=== PATIENT | male | born 1975 | race Caucasian/White ===

== ENCOUNTER 2016-06-01 21:45 | Inpatient (IN) | payer MEDICAID ==
[~2016-06-01] VITALS: Ht 175.3 cm; Wt 90.7 kg
[~2016-06-01 21:45] MED LIST: DIVA500T35 PO; LITH300C3 PO; QUET300T2 PO
[2016-06-02] MEDS ORDERED: ZOLPIDEM TARTRATE 10 MG TABLET PO PRN (00:15)
[2016-06-02 01:54] VITALS: BP 134/88
[2016-06-02] MEDS ORDERED: MAG HYDROX/AL HYDROX/SIMETH ES 30 ML SUSPENSION UDCUP PO PRN (07:00)
[2016-06-02] MEDS ORDERED: ALBUTEROL SULFATE HFA 90 MCG/PUFF 8 GM INHALER IH PRN (08:45)
[2016-06-02] MEDS ORDERED: LOPERAMIDE HCL 2 MG CAPSULE PO PRN (08:45)
[2016-06-02] MEDS ORDERED: IBUPROFEN 600 MG TABLET PO PRN (08:45)
[2016-06-02] MEDS ORDERED: BENZOCAINE/MENTHOL LOZENGE [8 LOZENGES/PACKET] MM PRN (08:45)
[2016-06-02] MEDS ORDERED: ONDANSETRON HCL 4 MG TABLET PO PRN (08:45)
[2016-06-02] MEDS ORDERED: PETROLATUM,WHITE 71 GM JELLY TP PRN (08:45)
[2016-06-02] MEDS ORDERED: CloNIDine HCL 0.1 MG TABLET PO PRN (08:45)
[2016-06-02] MEDS ORDERED: MAGNESIUM HYDROXIDE SUSPENSION 30 ML UDCUP PO PRN (08:45)
[2016-06-02] MEDS ORDERED: BENZOCAINE/MENTHOL LOZENGE MM PRN (08:45)
[2016-06-02] MEDS ORDERED: BACITRACIN 28.4 GM OINTMENT TP PRN (08:45)
[2016-06-02] MEDS ORDERED: ACETAMINOPHEN 325 MG TABLET PO PRN (08:45)
[2016-06-02] MEDS: LORazepam 2 MG TABLET PO PRN (09:33)
[2016-06-02] MEDS: HALOPERIDOL 5 MG TABLET PO PRN ×2 (09:33→21:10)
[2016-06-02 11:59] VITALS: BP 132/88
[2016-06-02 20:03] VITALS: BP 132/87
[2016-06-02] MEDS ORDERED: HALOPERIDOL 10 MG TABLET PO SCH (21:00)
[2016-06-02] MEDS: DIVALPROEX SODIUM 500 MG ER TABLET PO SCH (21:09)
[2016-06-02] MEDS: BENZTROPINE MESYLATE 1 MG TABLET PO SCH (21:09)
[2016-06-02] MEDS: QUEtiapine FUMARATE 300 MG TABLET PO SCH (21:09)
[2016-06-03 08:08] VITALS: BP 138/73
[2016-06-03 16:44] VITALS: BP 122/77
[2016-06-03] MEDS: BENZTROPINE MESYLATE 1 MG TABLET PO SCH (20:55)
[2016-06-03] MEDS: DIVALPROEX SODIUM 500 MG ER TABLET PO SCH (20:55)
[2016-06-03] MEDS: QUEtiapine FUMARATE 300 MG TABLET PO SCH (20:56)
[2016-06-04 08:01] VITALS: BP 121/72
[2016-06-04] MEDS: HALOPERIDOL 5 MG TABLET PO PRN ×2 (16:48→20:58)
[2016-06-04] MEDS: LORazepam 2 MG TABLET PO PRN ×2 (16:50→21:31)
[2016-06-04 18:17] VITALS: BP 128/76
[2016-06-04] MEDS: QUEtiapine FUMARATE 300 MG TABLET PO SCH (20:57)
[2016-06-04] MEDS: DIVALPROEX SODIUM 500 MG ER TABLET PO SCH (20:57)
[2016-06-04] MEDS: BENZTROPINE MESYLATE 1 MG TABLET PO SCH (20:57)
[2016-06-05 08:03] VITALS: BP 106/56
[2016-06-05 17:37] VITALS: BP 118/68
[2016-06-05] MEDS: QUEtiapine FUMARATE 300 MG TABLET PO SCH (20:28)
[2016-06-05] MEDS: DIVALPROEX SODIUM 500 MG ER TABLET PO SCH (20:28)
[2016-06-05] MEDS: BENZTROPINE MESYLATE 1 MG TABLET PO SCH (20:28)
[2016-06-06 08:02] VITALS: BP 126/66
[2016-06-06] MEDS: LORazepam 2 MG TABLET PO PRN ×2 (15:01→19:18)
[2016-06-06 19:14] VITALS: BP 132/88
[2016-06-06] MEDS: BENZTROPINE MESYLATE 1 MG TABLET PO SCH (20:56)
[2016-06-06] MEDS: DIVALPROEX SODIUM 500 MG ER TABLET PO SCH (20:56)
[2016-06-06] MEDS: QUEtiapine FUMARATE 300 MG TABLET PO SCH (20:56)
[2016-06-06] MEDS: HALOPERIDOL 5 MG TABLET PO PRN (21:00)
[2016-06-07 08:05] VITALS: BP 132/88
[2016-06-07] MEDS ORDERED: BENZOCAINE/MENTHOL LOZENGE [8 LOZENGES/PACKET] MM PRN (12:22)
[2016-06-07] MEDS: LORazepam 2 MG TABLET PO PRN (19:32)
[2016-06-07] MEDS: BENZTROPINE MESYLATE 1 MG TABLET PO SCH (20:32)
[2016-06-07] MEDS: DIVALPROEX SODIUM 500 MG ER TABLET PO SCH (20:32)
[2016-06-07] MEDS: QUEtiapine FUMARATE 300 MG TABLET PO SCH (20:33)
[2016-06-07] MEDS ORDERED: QUEtiapine FUMARATE 300 MG TABLET PO SCH (21:00)
[2016-06-07] MEDS: HALOPERIDOL 5 MG TABLET PO PRN (21:41)
[2016-06-07 21:46] VITALS: BP 132/76
[2016-06-08 08:05] VITALS: BP 144/86
[2016-06-08] MEDS: HALOPERIDOL 5 MG TABLET PO PRN ×2 (08:09→20:39)
[2016-06-08] MEDS: LORazepam 2 MG TABLET PO PRN ×2 (08:09→16:50)
[2016-06-08] MEDS: NICOTINE 21 MG/24 HOUR PATCH TD SCH (08:15)
[2016-06-08 16:00] VITALS: BP 138/78
[2016-06-08] MEDS: BENZTROPINE MESYLATE 1 MG TABLET PO SCH (20:38)
[2016-06-08] MEDS: DIVALPROEX SODIUM 500 MG ER TABLET PO SCH (20:38)
[2016-06-08] MEDS: QUEtiapine FUMARATE 300 MG TABLET PO SCH (20:38)
[2016-06-09 08:05] VITALS: BP 102/50
[2016-06-09] MEDS: NICOTINE 21 MG/24 HOUR PATCH TD SCH (10:31)
[2016-06-09 16:47] VITALS: BP 133/62
[2016-06-09] MEDS: DIVALPROEX SODIUM 500 MG ER TABLET PO SCH (20:31)
[2016-06-09] MEDS: BENZTROPINE MESYLATE 1 MG TABLET PO SCH (20:31)
[2016-06-09] MEDS: QUEtiapine FUMARATE 300 MG TABLET PO SCH (20:31)
[2016-06-09] MEDS: HALOPERIDOL 5 MG TABLET PO PRN (20:33)
[2016-06-09] MEDS: LORazepam 2 MG TABLET PO PRN (21:10)
[2016-06-10] MEDS: LORazepam 2 MG TABLET PO PRN (08:18)
[2016-06-10] MEDS: NICOTINE 21 MG/24 HOUR PATCH TD SCH (09:00)
[2016-06-10 14:27] LABS: ALANINE AMINOTRANSFERASE 30 U/L (12-78); ALBUMIN 3.3 g/dL (3.4-5.0); ANION GAP 11 mmol/L (8-16); ASPARTATE AMINOTRANSFERASE 12 U/L (15-37); BILIRUBIN,TOTAL 0.3 mg/dL (0.1-1.0); CALCIUM, TOTAL 8.9 mg/dL (8.8-10.5); CARBON DIOXIDE 28 mmol/L (22-29); CHLORIDE 104 mmol/L (98-107); CHOL/HDL RATIO 5.2 (4.2-7.3); CREATININE 1.13 mg/dL (0.60-1.30); GLOMERULAR FILTR. RATE CALC > 60 mL/min (>60); POTASSIUM 4.4 mmol/L (3.5-5.1); SODIUM SERUM 143 mmol/L (136-145); TOTAL PROTEIN, SERUM 6.4 g/dL (6.4-8.2); UREA NITROGEN, BLOOD 16 mg/dL (7-18)
[2016-06-10] MEDS ORDERED: BENZ1TAB10 PO (16:37)
[2016-06-10] MEDS: DIVALPROEX SODIUM 500 MG ER TABLET PO SCH (20:29)
[2016-06-10] MEDS: BENZTROPINE MESYLATE 1 MG TABLET PO SCH (20:29)
[2016-06-10] MEDS: QUEtiapine FUMARATE 300 MG TABLET PO SCH (20:29)
[2016-06-10] MEDS: HALOPERIDOL 5 MG TABLET PO PRN (21:11)
[2016-06-10 21:17] VITALS: BP 129/78
[2016-06-11 07:18] VITALS: BP 107/78
== END 2016-06-11 07:15 | disposition home or self-care (01) | DRG 750 ==
LOC: 3EI 21:45 → UNDOADMIN 21:45
DX: F25.1 Schizoaffective disorder, depressive type (principal); R45.851 Suicidal ideations; F22 Delusional disorders; F15.10 Other stimulant abuse, uncomplicated; F12.90 Cannabis use, unspecified, uncomplicated; F17.200 Nicotine dependence, unspecified, uncomplicated; G47.00 Insomnia, unspecified; F19.10 Other psychoactive substance abuse, uncomplicated; G89.4 Chronic pain syndrome; F41.9 Anxiety disorder, unspecified; Z53.29 Procedure and treatment not carried out because of patient's decision for other reasons; Z71.6 Tobacco abuse counseling; Z71.51 Drug abuse counseling and surveillance of drug abuser; Z72.89 Other problems related to lifestyle

== ENCOUNTER 2016-07-04 17:37 | Inpatient (IN) | payer MEDICAID ==
[~2016-07-04] VITALS: Ht 175.3 cm; Wt 91.6 kg
[~2016-07-04 17:37] MED LIST changes: +BENZ1TAB10 PO; -LITH300C3 PO
[2016-07-04] MEDS ORDERED: ZOLPIDEM TARTRATE 10 MG TABLET PO PRN (20:30)
[2016-07-04 21:15] VITALS: BP 129/71
[2016-07-04] MEDS: HALOPERIDOL 5 MG TABLET PO PRN (22:01)
[2016-07-05] MEDS: LORazepam 2 MG TABLET PO PRN ×2 (02:43→07:50)
[2016-07-05 06:12] VITALS: BP 118/64
[2016-07-05] MEDS: NICOTINE 21 MG/24 HOUR PATCH TD SCH (08:07)
[2016-07-05 08:25] VITALS: BP 111/60
[2016-07-05] MEDS ORDERED: ALBUTEROL SULFATE HFA 90 MCG/PUFF 8 GM INHALER IH PRN (09:45)
[2016-07-05] MEDS ORDERED: MAGNESIUM HYDROXIDE SUSPENSION 30 ML UDCUP PO PRN (09:45)
[2016-07-05] MEDS ORDERED: ONDANSETRON HCL 4 MG TABLET PO PRN (09:45)
[2016-07-05] MEDS ORDERED: IBUPROFEN 600 MG TABLET PO PRN (09:45)
[2016-07-05] MEDS ORDERED: LOPERAMIDE HCL 2 MG CAPSULE PO PRN (09:45)
[2016-07-05] MEDS ORDERED: BENZOCAINE/MENTHOL LOZENGE MM PRN (09:45)
[2016-07-05] MEDS ORDERED: PETROLATUM,WHITE 71 GM JELLY TP PRN (09:45)
[2016-07-05] MEDS ORDERED: MAG HYDROX/AL HYDROX/SIMETH ES 30 ML SUSPENSION UDCUP PO PRN (09:45)
[2016-07-05] MEDS ORDERED: CloNIDine HCL 0.1 MG TABLET PO PRN (09:45)
[2016-07-05] MEDS ORDERED: ACETAMINOPHEN 325 MG TABLET PO PRN (09:45)
[2016-07-05] MEDS ORDERED: BACITRACIN 28.4 GM OINTMENT TP PRN (09:45)
[2016-07-05] MEDS: HALOPERIDOL 5 MG TABLET PO PRN (14:48)
[2016-07-05 16:03] VITALS: BP 114/60
[2016-07-05] MEDS: QUEtiapine FUMARATE 200 MG TABLET PO SCH (20:27)
[2016-07-05] MEDS: BENZTROPINE MESYLATE 1 MG TABLET PO SCH (20:27)
[2016-07-05] MEDS: DIVALPROEX SODIUM 500 MG DR TABLET PO SCH (20:27)
[2016-07-06 01:50] VITALS: BP 119/65
[2016-07-06] MEDS: FISH OIL/OMEGA-3 FATTY ACIDS 500 MG CAPSULE PO SCH (08:05)
[2016-07-06] MEDS: NICOTINE 21 MG/24 HOUR PATCH TD SCH (08:05)
[2016-07-06] MEDS ORDERED: HALOPERIDOL LACTATE 5 MG/ML VIAL ONE (18:12)
[2016-07-06] MEDS ORDERED: DiphenhydrAMINE HCL 50 MG/ML VIAL ONE (18:12)
[2016-07-06] MEDS ORDERED: DiphenhydrAMINE HCL 50 MG/ML VIAL IM ONE (18:15)
[2016-07-06] MEDS ORDERED: LORazepam 2 MG/ML VIAL IM ONE (18:15)
[2016-07-06] MEDS ORDERED: HALOPERIDOL LACTATE 5 MG/ML VIAL IM ONE (18:15)
[2016-07-06 18:58] VITALS: BP 116/69
[2016-07-06] MEDS: QUEtiapine FUMARATE 200 MG TABLET PO SCH (20:41)
[2016-07-06] MEDS: DIVALPROEX SODIUM 500 MG DR TABLET PO SCH (20:41)
[2016-07-06] MEDS: BENZTROPINE MESYLATE 1 MG TABLET PO SCH (20:41)
[2016-07-06] MEDS: LORazepam 2 MG TABLET PO PRN (23:55)
[2016-07-07 00:01] VITALS: BP 123/78
[2016-07-07 08:15] LABS: BASOPHILS % (AUTO) 0.4 % (0.0-2.0); EOSINOPHILS % (AUTO) 1.8 % (1.0-6.0); HEMATOCRIT 46.9 % (41-53); HEMOGLOBIN 15.1 g/dL (13.5-17.5); LYMPHOCYTES # (AUTO) 1.7 K/uL (1.0-4.8); LYMPHOCYTES % (AUTO) 30.1 % (22.0-44.0); MEAN CORPUSCULAR HEMOGLOBIN 29.9 pg (26.0-34.0); MEAN CORPUSCULAR HGB CONC 32.2 G/dL (31.0-37.0); MEAN CORPUSCULAR VOLUME 93 fL (80-100); MONOCYTES # (AUTO) 0.5 K/uL (0.1-1.0); MONOCYTES % (AUTO) 8.7 % (2.0-9.0); NEUTROPHILS # (AUTO) 3.4 K/uL (1.8-7.7); PLATELET COUNT (AUTO) 251 K/uL (150-450); RED BLOOD CELL COUNT(AUTO) 5.04 MIL/uL (4.50-5.90); RED CELL DISTRIBUTION WIDTH 13.1 % (11.5-14.5); WHITE BLOOD COUNT (AUTO) 5.8 K/uL (4.5-11.0)
[2016-07-07 08:18] VITALS: BP 125/78
[2016-07-07 08:31] LABS: HEMOGLOBIN A1C 5.8 % (4.5-6.2)
[2016-07-07] MEDS: LORazepam 2 MG TABLET PO PRN (08:36)
[2016-07-07] MEDS: FISH OIL/OMEGA-3 FATTY ACIDS 500 MG CAPSULE PO SCH ×2 (08:36→08:42)
[2016-07-07] MEDS: HALOPERIDOL 5 MG TABLET PO PRN (08:36)
[2016-07-07] MEDS: NICOTINE 21 MG/24 HOUR PATCH TD SCH ×2 (08:37→08:42)
[2016-07-07 09:42] LABS: ALANINE AMINOTRANSFERASE 36 U/L (12-78); ALBUMIN 3.7 g/dL (3.4-5.0); ANION GAP 8 mmol/L (8-16); ASPARTATE AMINOTRANSFERASE 17 U/L (15-37); BILIRUBIN,TOTAL 0.4 mg/dL (0.1-1.0); CALCIUM, TOTAL 8.4 mg/dL (8.8-10.5); CARBON DIOXIDE 27 mmol/L (22-29); CHLORIDE 103 mmol/L (98-107); CREATININE 1.15 mg/dL (0.60-1.30); GLOMERULAR FILTR. RATE CALC > 60 mL/min (>60); SODIUM SERUM 138 mmol/L (136-145); THYROID STIMULATING HORMONE 0.86 uIU/mL (0.36-3.74); TOTAL PROTEIN, SERUM 6.7 g/dL (6.4-8.2); UREA NITROGEN, BLOOD 19 mg/dL (7-18)
[2016-07-07 16:01] VITALS: BP 121/73
[2016-07-07] MEDS: QUEtiapine FUMARATE 200 MG TABLET PO SCH (20:00)
[2016-07-07] MEDS: BENZTROPINE MESYLATE 1 MG TABLET PO SCH (20:00)
[2016-07-07] MEDS: DIVALPROEX SODIUM 500 MG DR TABLET PO SCH (20:00)
[2016-07-08 06:32] VITALS: BP 117/69
[2016-07-08 08:22] VITALS: BP 112/78
[2016-07-08] MEDS: FISH OIL/OMEGA-3 FATTY ACIDS 500 MG CAPSULE PO SCH (09:45)
[2016-07-08] MEDS: NICOTINE 21 MG/24 HOUR PATCH TD SCH (09:46)
[2016-07-08 16:03] VITALS: BP 118/71
[2016-07-08] MEDS: LORazepam 2 MG TABLET PO PRN (16:06)
[2016-07-08] MEDS: HALOPERIDOL 5 MG TABLET PO PRN (16:06)
[2016-07-08] MEDS: BENZTROPINE MESYLATE 1 MG TABLET PO SCH (20:43)
[2016-07-08] MEDS: DIVALPROEX SODIUM 500 MG DR TABLET PO SCH (20:43)
[2016-07-08] MEDS: QUEtiapine FUMARATE 200 MG TABLET PO SCH (20:43)
[2016-07-09 06:39] VITALS: BP 123/79
[2016-07-09] MEDS: FISH OIL/OMEGA-3 FATTY ACIDS 500 MG CAPSULE PO SCH (08:07)
[2016-07-09] MEDS: NICOTINE 21 MG/24 HOUR PATCH TD SCH (08:08)
[2016-07-09 16:08] VITALS: BP 122/75
[2016-07-09] MEDS: LORazepam 2 MG TABLET PO PRN (17:17)
[2016-07-09] MEDS: HALOPERIDOL 5 MG TABLET PO PRN (17:17)
[2016-07-09] MEDS: BENZTROPINE MESYLATE 1 MG TABLET PO SCH (20:36)
[2016-07-09] MEDS: QUEtiapine FUMARATE 200 MG TABLET PO SCH (20:36)
[2016-07-09] MEDS: DIVALPROEX SODIUM 500 MG DR TABLET PO SCH (20:36)
[2016-07-10 05:51] VITALS: BP 144/83
[2016-07-10] MEDS: NICOTINE 21 MG/24 HOUR PATCH TD SCH (09:54)
[2016-07-10] MEDS: FISH OIL/OMEGA-3 FATTY ACIDS 500 MG CAPSULE PO SCH (09:55)
[2016-07-10 16:00] VITALS: BP 118/69
[2016-07-10] MEDS: LORazepam 2 MG TABLET PO PRN (16:30)
[2016-07-10] MEDS: HALOPERIDOL 5 MG TABLET PO PRN (16:30)
[2016-07-10] MEDS: QUEtiapine FUMARATE 200 MG TABLET PO SCH (20:06)
[2016-07-10] MEDS: BENZTROPINE MESYLATE 1 MG TABLET PO SCH (20:06)
[2016-07-10] MEDS: DIVALPROEX SODIUM 500 MG DR TABLET PO SCH (20:06)
[2016-07-11 05:03] VITALS: BP 124/76
[2016-07-11 08:14] VITALS: BP 122/78
[2016-07-11] MEDS: FISH OIL/OMEGA-3 FATTY ACIDS 500 MG CAPSULE PO SCH (09:46)
[2016-07-11] MEDS: NICOTINE 21 MG/24 HOUR PATCH TD SCH (09:47)
[2016-07-11] MEDS ORDERED: OMEG-12 PO (10:43)
== END 2016-07-11 15:12 | disposition home or self-care (01) | DRG 750 ==
LOC: B2S 20:32 → EDSTATUS 20:34 → B3A 07-06 19:12
DX: F25.1 Schizoaffective disorder, depressive type (principal); R45.851 Suicidal ideations; Z91.14 Patient's other noncompliance with medication regimen; F15.90 Other stimulant use, unspecified, uncomplicated; G89.4 Chronic pain syndrome; E78.5 Hyperlipidemia, unspecified; G47.00 Insomnia, unspecified; Z72.0 Tobacco use
CPT/HCPCS: 83036; 84439; 84443; 87081; J1200; J1630; J2060

== ENCOUNTER 2016-09-26 12:16 | Inpatient (IN) | payer MEDICAID ==
[~2016-09-26] VITALS: Ht 175.3 cm; Wt 95.3 kg
[2016-09-26 13:53] VITALS: BP 112/63
[2016-09-26] MEDS ORDERED: ZOLPIDEM TARTRATE 10 MG TABLET PO PRN (14:15)
[2016-09-26 14:53] VITALS: BP 112/66
[2016-09-26 16:14] VITALS: BP 125/65
[2016-09-26] MEDS: QUEtiapine FUMARATE 300 MG TABLET PO SCH (20:50)
[2016-09-26] MEDS: BENZTROPINE MESYLATE 1 MG TABLET PO SCH (20:50)
[2016-09-26] MEDS: DIVALPROEX SODIUM 500 MG DR TABLET PO SCH (20:50)
[2016-09-27 07:08] VITALS: BP 110/68
[2016-09-27 08:41] VITALS: BP 105/61
[2016-09-27] MEDS ORDERED: LOPERAMIDE HCL 2 MG CAPSULE PO PRN (10:30)
[2016-09-27] MEDS ORDERED: ONDANSETRON HCL 4 MG TABLET PO PRN (10:30)
[2016-09-27] MEDS ORDERED: MAGNESIUM HYDROXIDE SUSPENSION 30 ML UDCUP PO PRN (10:30)
[2016-09-27] MEDS ORDERED: PETROLATUM,WHITE 71 GM JELLY TP PRN (10:30)
[2016-09-27] MEDS ORDERED: CloNIDine HCL 0.1 MG TABLET PO PRN (10:30)
[2016-09-27] MEDS ORDERED: ALBUTEROL SULFATE HFA 90 MCG/PUFF 8 GM INHALER IH PRN (10:30)
[2016-09-27] MEDS ORDERED: ACETAMINOPHEN 325 MG TABLET PO PRN (10:30)
[2016-09-27] MEDS ORDERED: MAG HYDROX/AL HYDROX/SIMETH ES 30 ML SUSPENSION UDCUP PO PRN (10:30)
[2016-09-27] MEDS ORDERED: BENZOCAINE/MENTHOL LOZENGE MM PRN (10:30)
[2016-09-27] MEDS ORDERED: BACITRACIN 28.4 GM OINTMENT TP PRN (10:30)
[2016-09-27] MEDS: LORazepam 2 MG TABLET PO PRN ×2 (14:53→20:13)
[2016-09-27] MEDS: QUEtiapine FUMARATE 100 MG TABLET PO PRN (14:53)
[2016-09-27 16:52] VITALS: BP 113/68
[2016-09-27] MEDS: QUEtiapine FUMARATE 300 MG TABLET PO SCH (20:28)
[2016-09-27] MEDS: BENZTROPINE MESYLATE 1 MG TABLET PO SCH (20:28)
[2016-09-27] MEDS: DIVALPROEX SODIUM 500 MG DR TABLET PO SCH (20:28)
[2016-09-28 05:30] VITALS: BP 110/64
[2016-09-28 08:41] VITALS: BP 107/69
[2016-09-28 08:51] LABS: BASOPHILS # (AUTO) 0.03 K/uL (0.00-0.20); BASOPHILS % (AUTO) 0.4 % (0.0-2.0); EOSINOPHILS # (AUTO) 0.06 K/uL (0.00-0.70); EOSINOPHILS % (AUTO) 1.08 % (1.0-6.0); HEMATOCRIT 37.2 % (41-53); HEMOGLOBIN 13.4 g/dL (13.5-17.5); LYMPHOCYTES # (AUTO) 2.4 K/uL (1.0-4.8); LYMPHOCYTES % (AUTO) 41.1 % (22.0-44.0); MEAN CORPUSCULAR HEMOGLOBIN 32.1 pg (26.0-34.0); MEAN CORPUSCULAR VOLUME 89 fL (80-100); MONOCYTES # (AUTO) 0.5 K/uL (0.1-1.0); MONOCYTES % (AUTO) 8.6 % (2.0-9.0); NEUTROPHILS # (AUTO) 2.9 K/uL (1.8-7.7); NEUTROPHILS % (AUTO) 48.9 % (40.0-70.0); PLATELET COUNT (AUTO) 223 K/uL (150-450); RED BLOOD CELL COUNT(AUTO) 4.18 MIL/uL (4.50-5.90); RED CELL DISTRIBUTION WIDTH 13.4 % (11.5-14.5); WHITE BLOOD COUNT (AUTO) 5.9 K/uL (4.5-11.0)
[2016-09-28 09:41] LABS: ALANINE AMINOTRANSFERASE 29 U/L (12-78); ALBUMIN 3.1 g/dL (3.4-5.0); ANION GAP 11 mmol/L (8-16); ASPARTATE AMINOTRANSFERASE 12 U/L (15-37); BILIRUBIN,TOTAL 0.2 mg/dL (0.1-1.0); CALCIUM, TOTAL 8.2 mg/dL (8.8-10.5); CARBON DIOXIDE 24 mmol/L (22-29); CHLORIDE 108 mmol/L (98-107); CHOL/HDL RATIO 4.7 (4.2-7.3); CREATININE 1.04 mg/dL (0.60-1.30); GLOMERULAR FILTR. RATE CALC > 60 mL/min (>60); POTASSIUM 4.2 mmol/L (3.5-5.1); SODIUM SERUM 143 mmol/L (136-145); THYROID STIMULATING HORMONE 0.97 uIU/mL (0.36-3.74); TOTAL PROTEIN, SERUM 5.9 g/dL (6.4-8.2); UREA NITROGEN, BLOOD 17 mg/dL (7-18)
[2016-09-28] MEDS: QUEtiapine FUMARATE 100 MG TABLET PO PRN (14:25)
[2016-09-28] MEDS: LORazepam 2 MG TABLET PO PRN ×2 (14:25→20:56)
[2016-09-28 16:02] VITALS: BP 116/60
[2016-09-28] MEDS: DIVALPROEX SODIUM 500 MG DR TABLET PO SCH (20:22)
[2016-09-28] MEDS: BENZTROPINE MESYLATE 1 MG TABLET PO SCH (20:22)
[2016-09-28] MEDS: QUEtiapine FUMARATE 300 MG TABLET PO SCH (20:22)
[2016-09-29 00:10] VITALS: BP 110/61
[2016-09-29] MEDS: QUEtiapine FUMARATE 100 MG TABLET PO PRN (08:45)
[2016-09-29] MEDS: LORazepam 2 MG TABLET PO PRN (08:45)
[2016-09-29 09:19] VITALS: BP 112/72
[2016-09-29 16:47] VITALS: BP 110/61
[2016-09-29] MEDS: DIVALPROEX SODIUM 500 MG DR TABLET PO SCH (20:54)
[2016-09-29] MEDS: QUEtiapine FUMARATE 300 MG TABLET PO SCH (20:55)
[2016-09-29] MEDS: BENZTROPINE MESYLATE 1 MG TABLET PO SCH (20:55)
[2016-09-30 03:54] VITALS: BP 113/64
[2016-09-30 16:24] VITALS: BP 106/69
[2016-09-30] MEDS ORDERED: HALOPERIDOL LACTATE 5 MG/ML VIAL IM ONE (19:00)
[2016-09-30] MEDS ORDERED: DiphenhydrAMINE HCL 50 MG/ML VIAL IM ONE (19:00)
[2016-09-30] MEDS ORDERED: LORazepam 2 MG/ML VIAL IM ONE (19:00)
[2016-09-30 20:00] VITALS: BP 116/58
[2016-09-30] MEDS: DIVALPROEX SODIUM 500 MG DR TABLET PO SCH (21:19)
[2016-09-30] MEDS: QUEtiapine FUMARATE 300 MG TABLET PO SCH (21:19)
[2016-09-30] MEDS: BENZTROPINE MESYLATE 1 MG TABLET PO SCH (21:20)
[2016-10-01 02:38] VITALS: BP 112/64
[2016-10-01] MEDS: QUEtiapine FUMARATE 100 MG TABLET PO PRN ×3 (02:41→17:12)
[2016-10-01] MEDS: LORazepam 2 MG TABLET PO PRN ×2 (02:41→17:12)
[2016-10-01 16:00] VITALS: BP 116/71
[2016-10-01] MEDS: BENZTROPINE MESYLATE 1 MG TABLET PO SCH (20:15)
[2016-10-01] MEDS: QUEtiapine FUMARATE 300 MG TABLET PO SCH (20:15)
[2016-10-01] MEDS: DIVALPROEX SODIUM 500 MG DR TABLET PO SCH (20:15)
[2016-10-02 03:03] VITALS: BP 123/72
[2016-10-02 08:25] VITALS: BP 107/60
[2016-10-02 16:00] VITALS: BP 126/82
[2016-10-02] MEDS: LORazepam 2 MG TABLET PO PRN (16:26)
[2016-10-02] MEDS: BENZTROPINE MESYLATE 1 MG TABLET PO SCH (20:32)
[2016-10-02] MEDS: QUEtiapine FUMARATE 300 MG TABLET PO SCH (20:33)
[2016-10-02] MEDS: DIVALPROEX SODIUM 500 MG DR TABLET PO SCH (20:33)
[2016-10-03 06:24] VITALS: BP 105/69
[2016-10-03 08:21] VITALS: BP 106/69
[2016-10-03] MEDS: LORazepam 2 MG TABLET PO PRN ×2 (10:45→21:06)
[2016-10-03] MEDS: QUEtiapine FUMARATE 100 MG TABLET PO PRN (10:45)
[2016-10-03] MEDS: QUEtiapine FUMARATE 300 MG TABLET PO SCH (21:05)
[2016-10-03] MEDS: DIVALPROEX SODIUM 500 MG DR TABLET PO SCH (21:06)
[2016-10-03] MEDS: BENZTROPINE MESYLATE 1 MG TABLET PO SCH (21:06)
[2016-10-04] MEDS: FERROUS SULFATE 325 MG EC TABLET PO SCH ×2 (06:44→16:44)
[2016-10-04 08:09] VITALS: BP 95/58
[2016-10-04] MEDS: FISH OIL/OMEGA-3 FATTY ACIDS 500 MG CAPSULE PO SCH (09:28)
[2016-10-04] MEDS: IBUPROFEN 600 MG TABLET PO PRN (13:34)
[2016-10-04] MEDS: NICOTINE 21 MG/24 HOUR PATCH TD SCH (15:20)
[2016-10-04] MEDS: QUEtiapine FUMARATE 100 MG TABLET PO PRN (15:21)
[2016-10-04] MEDS: LORazepam 2 MG TABLET PO PRN (15:21)
[2016-10-04 16:33] VITALS: BP 114/74
[2016-10-04] MEDS: BENZTROPINE MESYLATE 1 MG TABLET PO SCH (20:20)
[2016-10-04] MEDS: QUEtiapine FUMARATE 300 MG TABLET PO SCH (20:20)
[2016-10-04] MEDS: DIVALPROEX SODIUM 500 MG DR TABLET PO SCH (20:20)
[2016-10-05 06:33] VITALS: BP 119/79
[2016-10-05] MEDS: FERROUS SULFATE 325 MG EC TABLET PO SCH ×2 (06:36→16:06)
[2016-10-05 08:11] VITALS: BP 108/67
[2016-10-05] MEDS: FISH OIL/OMEGA-3 FATTY ACIDS 500 MG CAPSULE PO SCH (08:55)
[2016-10-05] MEDS: LORazepam 2 MG TABLET PO PRN ×2 (08:56→16:06)
[2016-10-05] MEDS: QUEtiapine FUMARATE 100 MG TABLET PO PRN ×2 (08:56→16:06)
[2016-10-05] MEDS: NICOTINE 21 MG/24 HOUR PATCH TD SCH (08:56)
[2016-10-05 16:00] VITALS: BP 121/68
[2016-10-05] MEDS: BENZTROPINE MESYLATE 1 MG TABLET PO SCH (20:30)
[2016-10-05] MEDS: DIVALPROEX SODIUM 500 MG DR TABLET PO SCH (20:30)
[2016-10-05] MEDS: QUEtiapine FUMARATE 300 MG TABLET PO SCH (20:30)
[2016-10-06] MEDS: FERROUS SULFATE 325 MG EC TABLET PO SCH ×2 (06:21→16:05)
[2016-10-06 08:00] VITALS: BP 116/67
[2016-10-06] MEDS: NICOTINE 21 MG/24 HOUR PATCH TD SCH (08:32)
[2016-10-06] MEDS: FISH OIL/OMEGA-3 FATTY ACIDS 500 MG CAPSULE PO SCH (08:32)
[2016-10-06] MEDS: LORazepam 2 MG TABLET PO PRN ×2 (08:32→15:34)
[2016-10-06] MEDS: QUEtiapine FUMARATE 100 MG TABLET PO PRN (08:32)
[2016-10-06 16:00] VITALS: BP 122/70
[2016-10-06] MEDS: DIVALPROEX SODIUM 500 MG DR TABLET PO SCH (20:37)
[2016-10-06] MEDS: BENZTROPINE MESYLATE 1 MG TABLET PO SCH (20:37)
[2016-10-06] MEDS: QUEtiapine FUMARATE 300 MG TABLET PO SCH (20:37)
[2016-10-07 06:21] VITALS: BP 117/78
[2016-10-07] MEDS: IBUPROFEN 600 MG TABLET PO PRN (06:24)
[2016-10-07] MEDS: LORazepam 2 MG TABLET PO PRN ×3 (06:24→16:56)
[2016-10-07] MEDS: FERROUS SULFATE 325 MG EC TABLET PO SCH ×2 (06:24→16:55)
[2016-10-07 08:22] VITALS: BP 110/65
[2016-10-07] MEDS: NICOTINE 21 MG/24 HOUR PATCH TD SCH (08:47)
[2016-10-07] MEDS: FISH OIL/OMEGA-3 FATTY ACIDS 500 MG CAPSULE PO SCH (08:48)
[2016-10-07 16:00] VITALS: BP 121/72
[2016-10-07] MEDS: QUEtiapine FUMARATE 100 MG TABLET PO PRN (16:55)
[2016-10-07] MEDS: DIVALPROEX SODIUM 500 MG DR TABLET PO SCH (20:30)
[2016-10-07] MEDS: BENZTROPINE MESYLATE 1 MG TABLET PO SCH (20:30)
[2016-10-07] MEDS: QUEtiapine FUMARATE 300 MG TABLET PO SCH (20:30)
[2016-10-08 05:50] VITALS: BP 113/73
[2016-10-08] MEDS: FERROUS SULFATE 325 MG EC TABLET PO SCH ×2 (06:31→16:29)
[2016-10-08] MEDS: LORazepam 2 MG TABLET PO PRN ×2 (06:31→15:12)
[2016-10-08 08:35] VITALS: BP 106/66
[2016-10-08] MEDS: FISH OIL/OMEGA-3 FATTY ACIDS 500 MG CAPSULE PO SCH (08:53)
[2016-10-08] MEDS: NICOTINE 21 MG/24 HOUR PATCH TD SCH (08:53)
[2016-10-08 15:10] VITALS: BP 118/62
[2016-10-08] MEDS: QUEtiapine FUMARATE 100 MG TABLET PO PRN (15:12)
[2016-10-08 16:34] VITALS: BP 117/84
[2016-10-08] MEDS: QUEtiapine FUMARATE 300 MG TABLET PO SCH (20:17)
[2016-10-08] MEDS: DIVALPROEX SODIUM 500 MG DR TABLET PO SCH (20:17)
[2016-10-08] MEDS: BENZTROPINE MESYLATE 1 MG TABLET PO SCH (20:18)
[2016-10-09] MEDS: FERROUS SULFATE 325 MG EC TABLET PO SCH (06:29)
[2016-10-09 06:51] VITALS: BP 104/60
[2016-10-09] MEDS: LORazepam 2 MG TABLET PO PRN (09:45)
[2016-10-09] MEDS: FISH OIL/OMEGA-3 FATTY ACIDS 500 MG CAPSULE PO SCH (09:45)
[2016-10-09] MEDS: QUEtiapine FUMARATE 100 MG TABLET PO PRN (09:45)
[2016-10-09] MEDS: NICOTINE 21 MG/24 HOUR PATCH TD SCH (09:45)
[2016-10-09 13:17] VITALS: BP 125/72
[2016-10-09] MEDS ORDERED: OMEG-12 PO (15:26)
[2016-10-09] MEDS ORDERED: FERR-72 PO (15:27)
== END 2016-10-09 15:50 | disposition home or self-care (01) | DRG 750 ==
LOC: B2S 14:03 → EDSTATUS 14:20 → 3EI 09-30 19:55 → B3A 09-30 21:08
DX: F25.1 Schizoaffective disorder, depressive type (principal); R45.851 Suicidal ideations; F15.10 Other stimulant abuse, uncomplicated; E78.5 Hyperlipidemia, unspecified; F17.200 Nicotine dependence, unspecified, uncomplicated; G47.00 Insomnia, unspecified; K59.00 Constipation, unspecified; M54.5 Low back pain; Z71.6 Tobacco abuse counseling; Z71.51 Drug abuse counseling and surveillance of drug abuser; Z79.899 Other long term (current) drug therapy; D64.9 Anemia, unspecified
CPT/HCPCS: 84439; 84443; 87081; J1200; J1630; J2060

== ENCOUNTER 2017-01-05 22:56 | Inpatient (IN) | payer MEDICAID ==
[~2017-01-05] VITALS: Ht 175.3 cm; Wt 79.5 kg
[~2017-01-05 22:56] MED LIST changes: +FERR325T22 PO; +OMEG-12 PO
[2017-01-05] MEDS ORDERED: DiphenhydrAMINE HCL 50 MG/ML VIAL IM ONE (23:15)
[2017-01-05] MEDS ORDERED: LORazepam 2 MG/ML VIAL IM ONE (23:15)
[2017-01-05] MEDS ORDERED: HALOPERIDOL LACTATE 5 MG/ML VIAL IM ONE (23:15)
[2017-01-05 23:19] LABS: BASOPHILS % (AUTO) 0.4 % (0.0-2.0); EOSINOPHILS % (AUTO) 0.7 % (1.0-6.0); HEMATOCRIT 37.4 % (41-53); LYMPHOCYTES # (AUTO) 2.7 K/uL (1.0-4.8); LYMPHOCYTES % (AUTO) 33.4 % (22.0-44.0); MEAN CORPUSCULAR HEMOGLOBIN 31.7 pg (26.0-34.0); MEAN CORPUSCULAR HGB CONC 34.7 G/dL (31.0-37.0); MEAN CORPUSCULAR VOLUME 91 fL (80-100); MONOCYTES % (AUTO) 12.3 % (2.0-9.0); NEUTROPHILS # (AUTO) 4.3 K/uL (1.8-7.7); NEUTROPHILS % (AUTO) 53.2 % (40.0-70.0); PLATELET COUNT (AUTO) 336 K/uL (150-450); RED BLOOD CELL COUNT(AUTO) 4.08 MIL/uL (4.50-5.90); RED CELL DISTRIBUTION WIDTH 12.8 % (11.5-14.5); WHITE BLOOD COUNT (AUTO) 8.2 K/uL (4.5-11.0)
[2017-01-05 23:29] LABS: ANION GAP 10 mmol/L (8-16); CALCIUM, TOTAL 8.2 mg/dL (8.8-10.5); CARBON DIOXIDE 25 mmol/L (22-29); CHLORIDE 106 mmol/L (98-107); CREATININE 1.14 mg/dL (0.60-1.30); GLOMERULAR FILTR. RATE CALC > 60 mL/min (>60); POTASSIUM 3.9 mmol/L (3.5-5.1); SODIUM SERUM 141 mmol/L (136-145); UREA NITROGEN, BLOOD 22 mg/dL (7-18)
[2017-01-05 23:35] LABS: ALANINE AMINOTRANSFERASE 59 U/L (12-78); ALBUMIN 3.5 g/dL (3.4-5.0); ASPARTATE AMINOTRANSFERASE 32 U/L (15-37); BILIRUBIN,TOTAL 0.5 mg/dL (0.1-1.0); TOTAL PROTEIN, SERUM 6.5 g/dL (6.4-8.2); VALPROIC ACID 42 mcg/mL (50-100)
[2017-01-06 02:47] LABS: CHOL/HDL RATIO 1.9 (4.2-7.3)
[2017-01-06 12:31] VITALS: BP 122/80
[2017-01-06] MEDS: QUEtiapine FUMARATE 300 MG TABLET PO SCH (20:49)
[2017-01-06] MEDS: DIVALPROEX SODIUM 500 MG DR TABLET PO SCH (20:51)
[2017-01-07] MEDS ORDERED: INFLUENZA VIRUS VACCINE QVS 2017-18 (3YR+)/PF 60 MCG/0.5 ML SYRINGE IM ONE (04:15)
[2017-01-07 16:55] VITALS: BP 126/59
[2017-01-07] MEDS: QUEtiapine FUMARATE 300 MG TABLET PO SCH (21:07)
[2017-01-07] MEDS: DIVALPROEX SODIUM 500 MG DR TABLET PO SCH (21:08)
[2017-01-08] MEDS: LORazepam 2 MG TABLET PO PRN (19:27)
[2017-01-08] MEDS: QUEtiapine FUMARATE 300 MG TABLET PO SCH (21:21)
[2017-01-08] MEDS: DIVALPROEX SODIUM 500 MG DR TABLET PO SCH (21:21)
[2017-01-09 17:28] VITALS: BP 131/69
[2017-01-09] MEDS: LORazepam 2 MG TABLET PO PRN ×2 (17:43→23:59)
[2017-01-09] MEDS: DIVALPROEX SODIUM 500 MG DR TABLET PO SCH (21:07)
[2017-01-09] MEDS: QUEtiapine FUMARATE 300 MG TABLET PO SCH (21:08)
[2017-01-09] MEDS: ZOLPIDEM TARTRATE 10 MG TABLET PO PRN (23:59)
[2017-01-10 00:07] VITALS: BP 106/79
[2017-01-10 08:14] VITALS: BP 132/78
[2017-01-10] MEDS: LORazepam 2 MG TABLET PO PRN (18:38)
[2017-01-10] MEDS: HALOPERIDOL 5 MG TABLET PO PRN (18:38)
[2017-01-10] MEDS: QUEtiapine FUMARATE 300 MG TABLET PO SCH (20:17)
[2017-01-10] MEDS: DIVALPROEX SODIUM 500 MG DR TABLET PO SCH (20:17)
[2017-01-10 21:36] VITALS: BP 136/89
[2017-01-11 02:58] VITALS: BP 123/80
[2017-01-11] MEDS: ZOLPIDEM TARTRATE 10 MG TABLET PO PRN (02:59)
[2017-01-11] MEDS: LORazepam 2 MG TABLET PO PRN ×2 (02:59→12:04)
[2017-01-11 08:31] VITALS: BP 134/72
[2017-01-11] MEDS: HALOPERIDOL 5 MG TABLET PO PRN (12:04)
[2017-01-11 20:15] VITALS: BP 126/76
[2017-01-11] MEDS: DIVALPROEX SODIUM 500 MG DR TABLET PO SCH (21:01)
[2017-01-11] MEDS: QUEtiapine FUMARATE 300 MG TABLET PO SCH (21:01)
[2017-01-12 08:04] VITALS: BP 131/78
[2017-01-12] MEDS: LORazepam 2 MG TABLET PO PRN (18:06)
[2017-01-12 18:33] VITALS: BP 124/67
[2017-01-12] MEDS: QUEtiapine FUMARATE 300 MG TABLET PO SCH (20:07)
[2017-01-12] MEDS: DIVALPROEX SODIUM 500 MG DR TABLET PO SCH (20:07)
[2017-01-13 08:02] VITALS: BP 100/55
== END 2017-01-13 11:30 | disposition home or self-care (01) | DRG 750 ==
LOC: EMS 23:01 → AHU 01-06 09:59 → 3EC 01-06 21:00
DX: F25.0 Schizoaffective disorder, bipolar type (principal); R45.850 Homicidal ideations; F15.10 Other stimulant abuse, uncomplicated; F17.210 Nicotine dependence, cigarettes, uncomplicated; F12.90 Cannabis use, unspecified, uncomplicated; J45.909 Unspecified asthma, uncomplicated; E78.5 Hyperlipidemia, unspecified; G47.00 Insomnia, unspecified; M54.5 Low back pain; K59.00 Constipation, unspecified; Z79.899 Other long term (current) drug therapy; Z71.6 Tobacco abuse counseling
CPT/HCPCS: 96372; 99285; G0480; J1200; J1630; J2060